=== PATIENT | male | born 1985 | race Asian ===

== ENCOUNTER 2018-09-07 16:08 | Emergency (ER) | payer BC ==
[~2018-09-07] VITALS: Ht 188 cm; Wt 100.0 kg
[2018-09-07 20:01] VITALS: BP 154/101
== END 2018-09-07 20:05 | disposition home or self-care (01) ==
LOC: ER 16:34
DX: R22.0 Localized swelling, mass and lump, head (principal); K13.79 Other lesions of oral mucosa; F17.200 Nicotine dependence, unspecified, uncomplicated
CPT/HCPCS: 76536; 99284